=== PATIENT | female | born 1995 | race Caucasian/White ===

== ENCOUNTER 2017-01-11 07:37 | Emergency (ER) | payer MEDICAID ==
[~2017-01-11] VITALS: Ht 160 cm; Wt 82.0 kg
[~2017-01-11 07:37] MED LIST: ALBUAER3 INH; FLUT1SPR9 EACH NARE; PRED20 PO; TIOT12.9 INH; ZITHTAB PO
[2017-01-11 07:41] VITALS: BP 107/79; PULSE 91; RESP 16; TEMP 98.4; O2SAT 95
[2017-01-11] MEDS ORDERED: predniSONE 20 MG TAB PO ONE (08:00)
[2017-01-11] MEDS ORDERED: ALBUAER3 INH (08:07)
[2017-01-11] MEDS ORDERED: SPIRCAP INH (08:07)
--- NOTE | 2017-01-11 08:07 | PD ---
HPI . Shortness of breath Chief Complaint: Respiratory Symptoms Time Seen by Provider: 07:55 Travel History International Travel<30 days: No Contact w/Intl Traveler<30days: No Traveled to known affect area: No History of Present Illness HPI Patient presents with a chief complaint of shortness of breath. Nursing got the history that she been short of breath for 2 weeks but the patient told me that it had been more like 3 days. She reports that she is out of her Spiriva and pro-air. She states that her asthma is exacerbated by pet dander. It is generally improved by use of her inhalers. She does not have an associated fever nor does she have sputum production. PFSH Past Medical History Asthma: Yes Autoimmune Disease: No Blood Disorders: No Anxiety: No Depression: No Cardiovascular Problems: No Diminished Hearing: No Gastrointestinal Disorders: Yes Genitourinary: No Musculoskeletal: No Neurologic: Yes Psychiatric: No Respiratory: Yes (ASTHMA) Immunizations Current: Yes Seizures: Yes (NIGHTIME, HX OF FEBRILE SZ , SEIZED ON PHENERGAN) Influenza Vaccination: No ?: Not : 0 Past Surgical History Appendectomy: Yes (AGE 11) Genitourinary Surgery: No Other Surgery: No Family History Family Hypercholesterolemia: Yes (MOTHER, MATERNAL GRANDPARENTS) Social History Alcohol Use: Yes (RARELY) Tobacco Use: No Substance Use: No Allergies-Medications (Allergen,Severity, Reaction): Coded Allergies: Ceclor (Verified Allergy, Severe, RASH, 01/11/17) Phenergan (Verified Allergy, Severe, SEIZURES, 01/11/17) Reported Meds & Prescriptions Reported Meds & Active Scripts Active Proair Hfa 8.5 GM Inh (Albuterol Sulfate) 90 Mcg/Act Aer 2 Puff INH Q4-6H PRN 108 mcg/actuation Reported Spiriva Respimat Inh (Tiotropium Inh) 2.5 Mcg/Act Aero 2 Puff INH DAILY 2.5 mcg = 1 inhalation Flonase Allergy Relief Children Nasal Ramsey (Fluticasone Nasal Ramsey) 50 Mcg/ Act Ramsey 2 Ramsey EACH NARE DAILY 50 mcg/spray Review of Systems Except as stated in HPI: all other systems reviewed are Neg General / Constitutional: No: Fever, Chills Cardiovascular: No: Chest Pain or Discomfort Respiratory: Positive: Shortness of Breath, Wheezing Physical Exam Narrative GENERAL: Awake and alert and in no acute distress. SKIN: Warm and dry. HEAD: Atraumatic. Normocephalic. EYES: Pupils equal and round. Extraocular movements are intact. NECK: Trachea midline. Neck is supple. CARDIOVASCULAR: Regular rate and rhythm. Heart sounds are normal. RESPIRATORY: No accessory muscle use. Good air movement throughout. Scattered and expiratory wheezes. MUSCULOSKELETAL: No obvious deformities. No edema. NEUROLOGICAL: Awake and alert. No obvious cranial nerve deficits. Motor grossly within normal limits. Normal speech. PSYCHIATRIC: Appropriate mood and affect; insight and judgment normal. Data Data Last Documented VS Vital Signs Date Time Temp Pulse Resp B/P Pulse Ox O2 Delivery O2 Flow Rate FiO2 01/11/17 07:50 18 95 Room Air 01/11/17 07:41 98.4 91 107/79 Orders Prednisone (Deltasone) (01/11/17 08:00) Duoneb Q 15 Min X 3 Doses (01/11/17 08:00) MDM Medical Decision Making Medical Screen Exam Complete: Yes Emergency Medical Condition: Yes Differential Diagnosis Differential diagnosis of dyspnea includes but is not limited to congestive heart failure, pneumonia, wheezing, pneumothorax, pulmonary embolism Narrative Course Patient presents complaining of shortness of breath since running out of her inhalers a few days ago. She states that she feels like she could use a nebulizer treatment. She also states that steroids generally help her to get better quicker. She will be treated here with stacked DuoNeb and oral prednisone. She will then be discharged with prescriptions for Spiriva and ProAir. Emergency Department evaluation reveals no emergency medical condition. The patient is stable for discharge to home. Diagnosis Primary Impression: Acute asthma exacerbation Qualified Code: J45.21 - Mild intermittent asthma with acute exacerbation Patient Instructions: Asthma (DC), General Instructions Med/Other Pt SpecificInfo: Prescription(s) given Scripts Tiotropium Inh (Spiriva Handihaler)18 Mcg Cap18 Mcg INH DAILY #30 CAP Ref 0 1 capsule = 18 mcg Prov:Neeru Meneses MD 01/11/17 Albuterol 8.5 GM Inh (Proair Hfa 8.5 GM Inh)90 Mcg/Act Aer2 Puff INH Q4-6H PRN ( SHORTNESS OF BREATH) #1 INHALER 108 mcg/actuation Prov:Neeru Meneses MD 6/23/17 Disposition: 01 DISCHARGE HOME Condition: Stable Neeru Meneses MD Jan 11, 2017 08:07
[2017-01-11] MEDS: RESP: ALBUTEROL 2.5 MG/IPRATROPIUM 0.5 MG NEB (SCH) INH ×3 (08:12→08:37)
[2017-01-11 08:13] VITALS: O2SAT 97
[2017-01-11 08:55] VITALS: RESP 18; O2SAT 99
== END 2017-01-11 08:55 | disposition home or self-care (01) ==
LOC: PHED 07:37
DX: J45.21 Mild intermittent asthma with (acute) exacerbation (principal); Z87.09 Personal history of other diseases of the respiratory system; Z87.19 Personal history of other diseases of the digestive system; Z86.69 Personal history of other diseases of the nervous system and sense organs
CPT/HCPCS: 94640; 94664; 99284; J7512

== ENCOUNTER 2017-03-07 09:21 | Emergency (ER) | payer MEDICAID ==
[~2017-03-07] VITALS: Ht 160 cm; Wt 82.9 kg
[~2017-03-07 09:21] MED LIST changes: -PRED20 PO; +SPIRCAP INH; -ZITHTAB PO
[2017-03-07 09:30] VITALS: BP 126/85; PULSE 93; RESP 18; TEMP 97.9; O2SAT 97
--- NOTE | 2017-03-07 09:37 | PD ---
HPI Chief Complaint: Respiratory Symptoms Time Seen by Provider: 09:35 Travel History International Travel<30 days: No Contact w/Intl Traveler<30days: No Traveled to known affect area: No History of Present Illness HPI 21-year-old female with history of asthma, presents to the ER today because she ran out of her asthma pump and has had several days' history of coughing and wheezing. She denies any fevers or any other symptoms. She states she thinks that his her usual asthma exacerbation. Modifying Factors: None Associated Signs & Symptoms: Wheezing Risk Factors: Asthma history, ran out of meds [facility] Past Medical History Asthma: Yes Autoimmune Disease: No Blood Disorders: No Anxiety: No Depression: No Cardiovascular Problems: No Diminished Hearing: No Gastrointestinal Disorders: Yes Genitourinary: No Musculoskeletal: No Neurologic: Yes Psychiatric: No Respiratory: Yes (ASTHMA) Immunizations Current: Yes Seizures: Yes (NIGHTIME, HX OF FEBRILE SZ , SEIZED ON PHENERGAN) : 0 Past Surgical History Appendectomy: Yes (AGE 11) Genitourinary Surgery: No Other Surgery: No Family History Family Hypercholesterolemia: Yes (MOTHER, MATERNAL GRANDPARENTS) Social History Alcohol Use: Yes (RARELY) Tobacco Use: No Substance Use: No Allergies-Medications (Allergen,Severity, Reaction): Coded Allergies: cefaclor (Unverified Allergy, Severe, RASH, 03/05/17) promethazine (Unverified Allergy, Severe, SEIZURES, 03/05/17) Reported Meds & Prescriptions Reported Meds & Active Scripts Active Proair Hfa 8.5 GM Inh (Albuterol Sulfate) 90 Mcg/Act Aer 2 Puff INH Q4-6H PRN 108 mcg/actuation Reported Spiriva Respimat Inh (Tiotropium Inh) 2.5 Mcg/Act Aero 2 Puff INH DAILY 2.5 mcg = 1 inhalation Flonase Allergy Relief Children Nasal Savage (Fluticasone Nasal Savage) 50 Mcg/ Act Savage 2 Savage EACH NARE DAILY 50 mcg/spray Review of Systems Except as stated in HPI: all other systems reviewed are Neg Physical Exam Narrative GENERAL: Well-developed young white female patient currently mild distress. Awake and oriented 3. SKIN: Focused skin assessment warm/dry. HEAD: Atraumatic. Normocephalic. EYES: Pupils equal and round. No scleral icterus. No injection or drainage. ENT: No nasal bleeding or discharge. Mucous membranes pink and moist. NECK: Trachea midline. No JVD. CARDIOVASCULAR: Regular rate and rhythm. No murmur appreciated. RESPIRATORY: No accessory muscle use. Bilateral wheezing. Breath sounds equal bilaterally. GASTROINTESTINAL: Abdomen soft, non-tender, nondistended. Hepatic and splenic margins not palpable. MUSCULOSKELETAL: No obvious deformities. No clubbing. No cyanosis. No edema. NEUROLOGICAL: Awake and alert. No obvious cranial nerve deficits. Motor grossly within normal limits. Normal speech. PSYCHIATRIC: Appropriate mood and affect; insight and judgment normal. Data Data Last Documented VS Vital Signs Date Time Temp Pulse Resp B/P Pulse Ox O2 Delivery O2 Flow Rate FiO2 03/07/17 09:58 18 97 Room Air 03/07/17 09:30 97.9 93 126/85 Orders Ecg Monitoring (03/07/17 09:35) Oximetry (03/07/17 09:35) Oxygen Administration (03/07/17 09:35) Prednisone (Deltasone) (03/07/17 09:45) Albuterol Neb (Albuterol Neb) (03/07/17 09:45) MDM Medical Decision Making Medical Screen Exam Complete: Yes Emergency Medical Condition: Yes Medical Record Reviewed: Yes Differential Diagnosis Asthma exacerbation versus bronchitis Narrative Course Exam is consistent with asthma exacerbation and patient is given prednisone and albuterol in the ER. Patient was reevaluated at 10 AM is feeling much improved. Her wheezing has gone away. At this point, my plan would be to release her with further symptomatic treatment. Return for any worsening in symptoms as needed. The plan has been discussed with her and she states understanding. Diagnosis Primary Impression: Acute asthma exacerbation Med/Other Pt SpecificInfo: Prescription(s) given Scripts Prednisone 50 Mg Tab50 Mg PO DAILY #3 TAB Ref 0 Prov:Geni Kaufman MD 03/07/17 Albuterol 8.5 GM Inh (Proair Hfa 8.5 GM Inh)90 Mcg/Act Aer2 Puff INH Q4-6H PRN ( SHORTNESS OF BREATH) #1 INHALER 108 mcg/actuation Prov:Geni Kaufman MD 03/07/17 Disposition: 01 DISCHARGE HOME Condition: Stable Geni Kaufman MD Mar 07, 2017 09:37
[2017-03-07] MEDS: RESP: ALBUTEROL 2.5 MG/3 ML NEB (SCH) INH ×2 (09:44→09:45)
[2017-03-07] MEDS ORDERED: predniSONE 20 MG TAB PO ONE (09:45)
[2017-03-07 09:58] VITALS: RESP 18; O2SAT 97
[2017-03-07] MEDS ORDERED: ALBUAER3 INH (10:04)
[2017-03-07] MEDS ORDERED: PRED50 PO (10:04)
== END 2017-03-07 10:18 | disposition home or self-care (01) ==
LOC: PHED 09:21
DX: J45.901 Unspecified asthma with (acute) exacerbation (principal)
CPT/HCPCS: 94640; 94664; 99284; J7512; J7613

== ENCOUNTER 2017-06-13 10:50 | Emergency (ER) | payer MEDICAID ==
[~2017-06-13] VITALS: Ht 160 cm; Wt 82.8 kg
[~2017-06-13 10:50] MED LIST changes: +PRED50 PO; -SPIRCAP INH
[2017-06-13 10:54] VITALS: BP 113/59; PULSE 80; RESP 18; TEMP 98.1; O2SAT 94
[2017-06-13] MEDS ORDERED: SYMB160A INH (11:26)
[2017-06-13] MEDS ORDERED: VENTAER INH (11:26)
--- NOTE | 2017-06-13 11:26 | PD ---
HPI Chief Complaint: Respiratory Symptoms Time Seen by Provider: 11:16 Travel History International Travel<30 days: No Contact w/Intl Traveler<30days: No Traveled to known affect area: No History of Present Illness HPI 21-year-old female complains of coughing and wheezing. Patient has history of asthma and ran out of her inhaler. Patient states the symptoms started several days ago. Patient states the cough is mild intermittent dry cough. Patient states that she has history of using her inhaler daily recently. Patient states that she is not on any steroid inhaler. Patient denies any fever chills. Patient denies any chest pain. Patient states that she has shortness of breath this morning. PFSH Past Medical History Asthma: Yes Autoimmune Disease: No Blood Disorders: No Anxiety: No Depression: No Cardiovascular Problems: No Diminished Hearing: No Gastrointestinal Disorders: Yes Genitourinary: No Musculoskeletal: No Neurologic: Yes Psychiatric: No Respiratory: Yes (asthma) Immunizations Current: Yes Seizures: Yes (NIGHTIME, HX OF FEBRILE SZ , SEIZED ON PHENERGAN) Influenza Vaccination: No ?: Not LMP: 06/10/17 : 0 Past Surgical History Appendectomy: Yes (AGE 11) Genitourinary Surgery: No Other Surgery: No Family History Family Hypercholesterolemia: Yes (MOTHER, MATERNAL GRANDPARENTS) Social History Alcohol Use: Yes (RARELY) Tobacco Use: No Substance Use: No Allergies-Medications (Allergen,Severity, Reaction): Coded Allergies: cefaclor (Unverified Allergy, Severe, RASH, 06/13/17) promethazine (Unverified Allergy, Severe, SEIZURES, 06/13/17) Reported Meds & Prescriptions Reported Meds & Active Scripts Active Proair Hfa 8.5 GM Inh (Albuterol Sulfate) 90 Mcg/Act Aer 2 Puff INH Q4-6H PRN 108 mcg/actuation Review of Systems General / Constitutional: No: Fever Eyes: No: Visual changes HENT: No: Headaches Cardiovascular: No: Chest Pain or Discomfort Respiratory: Positive: Shortness of Breath, Wheezing Gastrointestinal: No: Abdominal Pain Genitourinary: No: Dysuria Musculoskeletal: No: Pain Skin: No Rash Neurologic: No: Weakness Psychiatric: No: Depression Endocrine: No: Polydipsia Hematologic/Lymphatic: No: Easy Bruising Physical Exam Narrative GENERAL: Well-nourished, well-developed patient. SKIN: Focused skin assessment warm/dry. HEAD: Normocephalic. EYES: No scleral icterus. No injection or drainage. NECK: Supple, trachea midline. No JVD or lymphadenopathy. CARDIOVASCULAR: Regular rate and rhythm without murmurs, gallops, or rubs. RESPIRATORY: Breath sounds equal bilaterally. No accessory muscle use. Mild expiratory wheezes. Few rhonchi at the bases. GASTROINTESTINAL: Abdomen soft, non-tender, nondistended. MUSCULOSKELETAL: No cyanosis, or edema. BACK: Nontender without obvious deformity. No CVA tenderness. Neurologic exam normal. Data Data Last Documented VS Vital Signs Date Time Temp Pulse Resp B/P (MAP) Pulse Ox O2 Delivery O2 Flow Rate FiO2 06/13/17 11:15 16 95 Room Air 06/13/17 10:54 98.1 80 113/59 (77) Orders Orders Duoneb X1 Dose (06/13/17 11:30) Resp Mdi/Instruction (06/13/17 11:21) MDM Medical Decision Making Medical Screen Exam Complete: Yes Emergency Medical Condition: Yes Differential Diagnosis Differential diagnosis including acute exacerbation of asthma, bronchitis, pneumonia, PE, pneumothorax. Narrative Course 21-year-old female with shortness breath and wheezing. History of asthma. Albuterol with Atrovent unit dose treatment times one now. Diagnosis Primary Impression: Acute asthma exacerbation Qualified Codes: J45.51 - Severe persistent asthma with (acute) exacerbation Patient Instructions: General Instructions Additional Instructions: Albuterol and Symbicort as directed. Follow-up with personal physician. Return if worse. Med/Other Pt SpecificInfo: Prescription(s) given Scripts Budesonide-Formoterol Inh (Symbicort Inh) 160-4.5 Mcg/Act Aero 2 PUFF INH Q12HR, #1 INHALER 0 Refills Prov: Raul Barajas MD 06/13/17 Albuterol 18 GM Inh (Ventolin Hfa 18 GM Inh) 90 Mcg/Act Aer 2 PUFF INH Q4H Y for SHORTNESS OF BREATH, #1 INHALER 0 Refills Prov: Raul Barajas MD 06/13/17 Disposition: 01 DISCHARGE HOME Condition: Stable Raul Barajas MD Jun 13, 2017 11:26
[2017-06-13] MEDS ORDERED: RESP: ALBUTEROL 2.5 MG/IPRATROPIUM 0.5 MG NEB (SCH) INH ONE (11:30)
[2017-06-13] MEDS ORDERED: ALBUTEROL SULFATE 90 MCG/ACT HFA 8 GM INHALER INH ONE (11:30)
== END 2017-06-13 11:55 | disposition home or self-care (01) ==
LOC: PHED 10:50
DX: J45.51 Severe persistent asthma with (acute) exacerbation (principal)
CPT/HCPCS: 94664; 99283